=== PATIENT | female | born 1950 | race Caucasian/White ===

== ENCOUNTER 2025-06-06 21:16 | Emergency (ER) | payer BC ==
[~2025-06-06] VITALS: Ht 147.3 cm; Wt 60.0 kg
[2025-06-06 21:22] VITALS: O2SAT 99
[2025-06-06] MEDS: ONDANSETRON HCL 4MG/2ML INJ IV ONE (21:45)
[2025-06-06] MEDS: MORPHINE SULFATE 4 MG/ML INJ (FOR IV/IM USE) IV ONE (21:46)
[2025-06-06 22:00] LABS: BASOPHILS % 0.8 % (0.0-2.0); EOSINOPHILS % 1.3 % (0.0-5.0); HEMATOCRIT. 44.0 % (36.0-48.0); HEMOGLOBIN. 14.2 g/dL (12.0-16.0); LYMPHOCYTES % 21.9 % (20.0-50.0); MEAN PLATELET VOLUME 7.8 fl (7.4-10.4); MONOCYTES % 6.3 % (2.0-8.0); NEUTROPHILS % 69.7 % (40.0-76.0); PLATELET 284 x1000/uL (130-400); RED BLOOD CELL COUNT 5.09 mill/uL (4.2-5.4); RED CELL DISTRIBUTION WIDTH 14.2 % (11.6-14.6)
[2025-06-06 22:13] LABS: CREATININE 0.7 mg/dL (0.6-1.0)
[2025-06-06 22:14] LABS: UREA NITROGEN BLOOD 11 mg/dL (9-23)
[2025-06-06] MEDS: HYDROCODONE/ACETAMINOPHEN 5/325MG TABLET PO ONE (23:08)
[2025-06-06] MEDS ORDERED: IBUP-2437 MT (23:30)
[2025-06-06] MEDS ORDERED: T3 PO (23:30)
[2025-06-07 00:07] VITALS: BP 154/79; PULSE 82; RESP 16; TEMP 36.8; O2SAT 100
== END 2025-06-07 00:13 | disposition home or self-care (01) ==
LOC: ER 21:16
DX: S52.511A Displaced fracture of right radial styloid process, initial encounter for closed fracture (principal); S52.611A Displaced fracture of right ulna styloid process, initial encounter for closed fracture; W01.0XXA Fall on same level from slipping, tripping and stumbling without subsequent striking against object, initial encounter; Y93.89 Activity, other specified; Y92.89 Other specified places as the place of occurrence of the external cause; Y99.8 Other external cause status
CPT/HCPCS: 99285; 96374; 96375; 80048; 85025; 36415; 73090; 73110; 29125; J2405; J2270